=== PATIENT | female | born 1950 | race Caucasian/White ===

== ENCOUNTER 2023-03-20 08:01 | Observation (INO) ==
--- NOTE | 2023-03-08 12:29 | PAT Medication Instructions ---
Medication Instructions Date of Service March 08, 2023 Home Medications Medication Instructions Recorded Randall Dorado #1 ea 03/08/23 atorvastatin 10 mg tablet 10 mg PO QAM doxycycline hyclate 50 mg capsule 50 mg PO QAM metoprolol succinate 25 mg tablet,extended release 24 hr 25 mg PO QPM rivaroxaban 20 mg tablet 20 mg PO QPM acetaminophen 500 mg tablet 1,000 mg PO TID PRN Pain ASK your prescriber and surgeon rivaroxaban 20 mg tablet 20 mg PO QPM (in order to get spinal anesthesia DOS- must be off Xarelto/rivaroxaban for at least 72 hours) Take morning of surgery With a small sip of water, OTHERWISE NOTHING TO EAT OR DRINK AFTER MIDNIGHT: atorvastatin 10 mg tablet 10 mg PO QAM doxycycline hyclate 50 mg capsule 50 mg PO QAM acetaminophen 500 mg tablet 1,000 mg PO TID PRN Pain (if needed) Take evening before surgery metoprolol succinate 25 mg tablet,extended release 24 hr 25 mg PO QPM acetaminophen 500 mg tablet 1,000 mg PO TID PRN Pain (if needed) Other Notes If you have any questions please call us at [phone] or [phone] or [phone] or [phone]
--- NOTE | 2023-03-09 11:06 | Anesthesiology Consultation ---
Date of Service March 09, 2023 Assessment & Plan (1) Encounter for pre-operative examination: - COVID screening: Per assessment on 03/09: No known COVID-19 positive contacts or current COVID-19 related symptoms. Travel screen negative. Patient vaccinated. At surgeon discretion if preop Covid testing being done. - Outpatient joint assessment: Pt currently scheduled for inpatient pathway. If surgeon requests review for outpatient joint pathway, patient is not recommended candidate for outpatient joint program from anesthesia standpoint. - Xarelto instructions: patient made aware that in order for spinal anesthesia, Xarelto needs to be held 72 hours prior to surgery. Patient voiced understanding/will check if okay with prescriber. - A. fib * Cardiology visit (02/28/23): "She did not tolerate the metoprolol because of related fatigue. Since starting Xarelto, she is not been able to take nonsteroidal anti-inflammatory drugs for management of her severe osteoarthritis of the knees. With highly symptomatic episodes of atrial fibrillation, she was referred to discuss further management, in particular catheter ablation.Currently she is having monthly events that will last for 2-3 days. There are no obvious triggers. With the atrial fibrillation she is fatigued with no energy. She is exhausted and simply worn out. She notes t hat her heart is racing.. Long-term anticoagulation was discussed. Given her CHADS-VASc score of 2, anticoagulation is indicated. However the burden of atrial fibrillation is low, the onset of the tachycardia is obvious either with symptoms or as documented by her watch, and her risk of a stroke is relatively low. If ablation is successful, it may be reasonable to discontinue anticoagulation in the future. This would allow her to use nonsteroidal agents for management of her degenerative joint disease.. Arrange for pulmonary vein isolation procedure." * Patient scheduled for PVI Cryoablation 04/2023. Cardiology was made aware of upcoming Right TKA 03/2023. Per cardiology response 03/08/23, "As long as they restart the rivaroxaban on March 21, we will still be able to proceed with the procedure [ablation]. I would like to have a minimum of 3 weeks of uninterrupted anticoagulation before the procedure. This will be cutting a close but will probably be okay." - Cardiology aware of upcoming orthopedic surgery (03/2023) prior to PVI cryoablation (04/2023). Case/cardiac history reviewed with Dr. Frank. Patient acceptable risk for surgery pending evaluation DOS. Chart Review Chart Review: Patient seen in Pre Admission Testing Teaching & Discussion Pre-Anesthesia Teaching/Discussion Notes: Instructed NPO after midnight before surgery,except medications with 15 cc of water. Medication instructions provided according to the PAT guidelines. History Surgery Operation Date: 03/20/23 10:40 Proposed Procedures p Right Total Knee Arthroplasty - Bakari Vasquez MD Height/Weight Height: 5 ft 7 in Weight: 70.3 kg Allergies Allergy/AdvReac Type Severity Reaction Status Date / Time erythromycin base Allergy Severe severe Verified 03/08/23 11:18 stomach pain thimerosal Allergy Severe severe Verified 03/08/23 11:18 swelling latex Allergy Intermediate redness/skin Verified 03/08/23 11:19 irritation bee stings Allergy Severe Anaphylaxis Uncoded 03/08/23 11:18 Medications Home Medications Medication Instructions Recorded Confirmed Last Taken atorvastatin 10 mg tablet 10 mg PO QAM 02/12/23 03/08/23 Unknown doxycycline hyclate 50 mg capsule 50 mg PO QAM 02/12/23 03/08/23 Unknown metoprolol succinate 25 mg 25 mg PO QPM 02/12/23 03/08/23 Unknown tablet,extended release 24 hr rivaroxaban 20 mg tablet 20 mg PO QPM 02/12/23 03/08/23 Unknown Wheeled Walker #1 ea 03/08/23 03/08/23 Unknown acetaminophen 500 mg tablet 1,000 mg PO TID PRN Pain 03/08/23 03/08/23 Unknown Past Medical History Medical History A-fib Taking Metoprolol/Xarelto Follows with Dr. Pennington Basal cell carcinoma of face Hyperlipidemia Mitral valve prolapse Echo 06/05/22- Borderline anterior mitral leaflet prolapse, Mild to moderate MR Osteoarthritis of right knee Rosacea Reason for doxycycline Exercise / Class Metabolic Activity II 4-5 Yardwork/Stairs/Walk up hill (one FS (no CP, no SOB)) Past Family History Family History Other No family history of adverse response to anesthesia Past Surgical History Surgical History History of appendectomy repair of intussusception + removal of appendix (age 3) History of arthroscopy of left knee History of arthroscopy of right knee History of colonoscopy History of dilatation and curettage History of foot surgery left for plantar fasciitis History of hammertoe correction left History of major abdominal surgery repair of intussusception + removal of appendix (age 3) History of Mohs micrographic surgery for skin cancer x2 History of partial hysterectomy History of tonsillectomy and adenoidectomy History of varicose vein ligation History of wisdom tooth extraction Past Anesthesia History No Hx of Anesthesia Complications and No Family Hx of Anesthesia Complications History of PONV No Hx of PONV and Hx of Motion Sickness Social History Smoking Status: Never smoker Do You Dip or Chew Tobacco: No Hx Alcohol Use: Yes Alcohol type: wine alcohol intake frequency: a few times a month Hx Substance Use: No substance use type: does not use Review of Systems Occasional palpitations. Patient denies chest pain, shortness of breath, dyspnea on exertion, fever, chills, cough, wheezing. Physical Exam Vital Signs VITALS BP 134/81 P 70 TEMP 98.1 SP02 96%RA RESP 16 PHYSICAL Full cervical extension range of motion. Full TMJ range of motion. TMD 3 finger breaths Mallampati Score Dentition: intact, + crowns Lungs: clear throughout to auscultation Cardiac: regular rate and rhythm, no murmurs noted Spine: normal Carotid arteries: negative bruit Extremities: no LE edema Lab Results Anesthesia Preop Results Results Anesthesia Widget: WBC 6.72 K/ul (4.8-10.8) 03/09/23 Hgb 13.1 g/dl (12.0-16.0) 03/09/23 Hct 37.9 % (37.0-47.0) 03/09/23 Plt 294 K/uL (130-400) 03/09/23 Na 136 mmol/L (136-145) 03/09/23 K 4.0 mmol/L (3.5-5.1) 03/09/23 Cl 102 mmol/L (98-107) 03/09/23 CO2 25 mmol/L (21-32) 03/09/23 BUN 15 mg/dl (6-23) 03/09/23 Creat 0.83 mg/dl (0.6-1.2) 03/09/23 Glucose Level 82 mg/dl (70-99(Fasting)) 03/09/23 PT 12.3 Seconds (9.0-12.0) H 03/09/23 PTT 33.1 Seconds (21.0-31.0) H 03/09/23 INR 1.1 (0.9-1.1) 03/09/23 Blood Type A Positive 03/09/23 Antibody Screen NEGATIVE 03/09/23 Testing Laboratory Results Mildly elevated coags- patient taking rivaroxaban* Electrocardiogram Date: 02/28/23 NSR at 61bpm. Rightward axis. Chest X-Ray Date: 03/09/23 FINDINGS: PA and lateral chest radiographs are obtained. No prior studies are available for comparison at the time of dictation. The cardiomediastinal silhouette is unremarkable. The lungs and pleural spaces are clear. There is no pneumothorax. The skeletal structures are osteopenic. The bony thorax appears intact. IMPRESSION: No active disease in the chest. Echocardiogram Date: 06/05/22 LVEF 60-64%. Mild AR. Borderline anterior mitral leaflet prolapse. Mild to moderate MR. Mild TR. LV wall motion is normal. No LV mural thrombus. COVID-19 Risk Screen Screening Information COVID-19 Screen Date: 03/09/23 Exposure 21 Days Family/Household +COVID Last 21 Days: No Exposure 10 Days Any COVID Exposure Last 10 Days: No Symptoms Last 10 Days Experienced COVID Sx Last 10 Days: No + COVID 0-90 Days COVID + in Last 0-90 Days: No
[~2023-03-20 08:01] MED LIST: ACETAMINOPHEN 500 MG TAB PO SCH; BUPIVACAINE 0.5 % 5 MG/1 ML PF 10ML VIAL ONE; BUPIVACAINE LIPOSOME/PF 266 MG, BUPIVACAINE/EPINEPHRINE 50 ML, SODIUM CHLORIDE 0.9% PF ... INFIL SCH; CeleBREX 200 MG CAP PO SCH; FAMOTIDINE 20 MG TAB PO SCH; LR 500ML BOLUS, THEN 15ML/HR IV SCH; LR 60ML/HR IV SCH; METOCLOPRAMIDE HCL 10 MG TABLET PO SCH; ROPIVACAINE 0.5% 5 MG/ML 30 ML VIAL ONE; TRANEXAMIC ACID 1,000 MG **IV Intra-op IV SCH; ceFAZolin 2000MG 2,000 MG/15 ML SYR IV SCH; dexAMETHasone 4 MG TAB PO SCH
[2023-03-20] MEDS ORDERED: MIDAZOLAM HCL 1 MG/ML 2ML VIAL ONE (08:08)
[2023-03-20] MEDS ORDERED: LIDOCAINE 2% 2 ML VIAL/AMP(20MG/ML) INFIL ONE (08:08)
[2023-03-20] MEDS ORDERED: PROPOFOL IV EMULSION 10 MG/ML 20 ML VIAL IV ONE (08:08)
[2023-03-20] MEDS ORDERED: ONDANSETRON INJ 2 MG/ML 2 ML VIAL ONE (08:08)
--- NOTE | 2023-03-20 08:36 | History & Physical Bridge Note ---
Date of Service March 20, 2023 History & Physical Bridge Note I have examined the patient, reviewed the History & Physical and in the interval since the performance of the History & Physical I have noted the following changes of clinical significance: no changes noted
[2023-03-20] MEDS ORDERED: ePHEDrine sulfate 50 MG/ML AMP IV PRN (09:27)
[2023-03-20] MEDS ORDERED: ATROPINE SULFATE 0.1 MG/ML 10ML SYR IV PRN (09:27)
[2023-03-20] MEDS ORDERED: fentaNYL citrate PF 100 MCG/2 ML VIAL IV PRN (09:27)
[2023-03-20] MEDS ORDERED: ONDANSETRON INJ 2 MG/ML 2 ML VIAL IV PRN ×2 (09:27→14:07)
[2023-03-20] MEDS ORDERED: BUPIVACAINE/EPINEPHRINE 0.25% 1:200,000 30 ML VIAL ONE (10:49)
[2023-03-20] MEDS ORDERED: SODIUM CHLORIDE 0.9% PF 50 ML VIAL ONE (10:49)
[2023-03-20] MEDS ORDERED: BUPIVACAINE LIPOSOME 1.3% 266 MG/20 ML VIAL ONE (10:50)
--- NOTE | 2023-03-20 12:42 | Operative Report ---
PG Post Operative Report Pre & Post Diagnosis Operation Date: 03/20/23 10:20 Pre-Op Diagnosis: Osteoarthritis of right knee Post-Op Diagnosis: Osteoarthritis of right knee I identified the patient and participated in the time-out.: Yes Procedure Operation Date: 03/20/23 10:20 Actual Procedures p Right Total Knee Arthroplasty(Right) - Bakari Vasquez MD Surgeon Bakari Vasquez MD [employer] Machine Setter Rocky Tan PA-C Estimated Blood Loss 50 Findings Consistent with Post-Op Diagnosis Operative findings were advanced right knee DJD. She had for extensive grade 4 [id number] disease of the lateral compartment. Severe valgus deformity to her knee. She has some intercondylar notch osteophytes. The medial and patellofemoral compartments were pretty well-preserved. She with diffuse osteopenia. Specimens Right knee sent for pathology Anesthesia Type Spinal MAC Complications none Disposition Accompanied Patient To Recovery: No Indications Patient 72-year-old female said a long history of knee pain discomfort. Over the past year her symptoms in her right knee got particularly worse. The x-rays show advanced compartment arthritis but she failed all conservative measures. She elected proceed with surgical management. Description of Procedure Operative implants consist of: 1 Biomet Vanguard size 65 right posterior femoral component. 2. Biomet size 71 tibial tray. 3. 10 mm post stabilized polyethylene insert. 4. 31 x 8 all poly patella. The patient was taken the operating, identified, and placed on the operating table supine position architectures were properly padded. IV antibiotics tried by anesthesia team. A spinal anesthetic and abductor canal block had provided in the holding area. Moore cath was placed in sterile fashion. Right thigh high tourniquet was then placed in the right lower extremities and prepped draped in usual sterile fashion. The right leg was elevated and exsanguinated with use of an Esmarch and the tourniquet was placed at 300 mmHg. An anterior process of the right knee was then performed to longitudinal incision centered over the patella. Sharp dissection carried through subcutaneous tissue down the extensor mechanism. A medial prepped arthrotomy incision was made. Some subperiosteal dissection was carried out medially. The fat pad was resected from Neath patella tendon. Lateral patellofemoral ligament was released. Patella subluxated laterally and the knee was flexed with the osteophytes taken on distal femur. The ACL and PCL were then released from distal femur the tibia subluxated anteriorly. The external tibial alignment jig was then placed in the interface the tibia and adjusted 12 mm medially. Proximal tibial cut was made remove about 3 to 4 mm of bone from the medial side. The tibia was sized to a size 71. Try to maximize coverage due to osteopenia. Attention drawn the femur. The distal femur examined the sharp drop with intramedullary canal was suction. A right 5 degree valgus cutting guide was placed. This femoral cutting block was pinned in place. This femoral cut was made to take an additional 3 mm bone off distal femur. Femur was then sized to a size 65. The AP cutting block was pinned parallel to the epicondylar axis which was 5 degrees of external rotation. The anterior cut, anterior chamfer, posterior cut, posterior chamfer cuts were made. The box cutting guide was placed in just slight lateral and the box cut was made. The knee was flexed. The remnants of the medial lateral menisci were excised with the osteophytes taken off the posterior aspect the femur. A trial femoral component was placed. Tibial tray was pinned in maximum external rotation and the drill and stem punch were used to create the defect in proximal tibia for the tibial tray. The knee was then trialed and the 10 mm insert fit most appropriately. Attention drawn the patella. The patella was cleaned of all soft tissues. Patella thickness measured 20 mm in thickness was cut down to 12. Was sized to a size 31 patella. The lug holes were drilled for 31 patella. The lateral osteophytes removed. Patella button was placed. Knee was taken through range of motion patella tracked nicely with no thumbs test. Attention drawn to place the permanent components. Truck cones removed. Bone plug was placed in the distal femur limit blood loss. Double batch Palacos G cement was mixed. Biomet Vanguard size 65 right posterior femoral component, size 71 tibial tray, a 10 mm posterior stabilized polyethylene insert, and a 31 x 8 all Paller patella was then cemented in place. The knee was brought out into full extension till cement hardened. Final cement check was then performed. Pericapsular tissues were injected with total 100 cc of combination of 20 cc of Exparel, 30 cc normal saline, 50 cc of quarter percent Marcaine with epinephrine. The patient did receive 1 g tranexamic acid. The tourniquet was then let down for final tourniquet time of 54 minutes. Hemostasis reduced electrocautery. Extensor mechanism closed with combination 1 PDS suture #1 Vicryl suture in a [id number] fashion. The extensor mechanism checked found intact and subcutaneous tissue then closed with 2 Dexon suture in a buried interrupted fashion skin was closed skin jo. Leg was then cleaned and dried and a sterile dressing was Xeroform, 4 fours, sterile cast padding, Emile bandage were applied. Patient then transferred to the recovery room in stable condition. Patient tolerated procedure well and there were no complications. Rocky Tan, my physician academic support assistant, was present for the entire procedure. His assistance was essential and required for appropriate patient positioning, prepping and draping, surgical exposure, performing the technical details of the operation, placement the implants, closure of the wound, and placement of the sterile bandage. I attest to the content of the Intraoperative Record and any orders documented therein. Any exceptions are noted below.
--- NOTE | 2023-03-20 13:04 | XRay Report ---
XR knee RT 1 or 2V routine HISTORY: 72 years-old Female Surgical Post Op right knee arthroplasty COMPARISON: 02/12/2023 TECHNIQUE: 2 views of the right knee FINDINGS: Total joint arthroplasty with patellar resurfacing and anterior midline skin jo. Expected postop erative soft tissue swelling with deep tissue air. No acute fracture or unexpected opaque foreign bod y identified. IMPRESSION: Total joint arthroplasty with expected postoperative changes. ACT 112: Negative or not required by law. The above report was generated using voice recognition software. It may contain grammatical, syntax o r spelling errors. Electronically signed by: Dilan Perez M.D. 03/20/2023 1:03 PM
--- NOTE | 2023-03-20 13:45 | Anesthesiology Progress Note ---
Date of Service March 20, 2023 Anesthesia Post Procedure Vital Signs Vital Signs: Temp Pulse Resp BP Pulse Ox O2 Del Method O2 Flow Rate 03/20/23 13:35 81 18 123/59 L 98 Room Air 03/20/23 13:25 70 12 111/58 L 99 Room Air 03/20/23 13:15 72 12 105/49 L 98 Room Air 03/20/23 13:05 71 14 102/50 L 97 Room Air 03/20/23 12:55 75 16 101/48 L 100 Room Air 03/20/23 12:45 75 13 99/47 L 100 Oxymask 5 03/20/23 12:35 97.3 F L 99 H 12 104/45 L 100 Oxymask 5 03/20/23 08:41 97.9 F 75 18 165/73 H 98 Room Air Pain Intensity Right Knee: Pain Intensity: 5 Transfer of Care Handoff Completed per policy Notes Mental Status: alert / awake / arousable and participated in evaluation Patient Amnestic to Procedure: Yes Nausea / Vomiting: adequately controlled Pain: adequately controlled Airway Patency, RR, SpO2: stable & adequate BP & HR: stable & adequate Hydration State: stable & adequate Neuraxial Anesthesia: was administered and sensory block is resolving Anesthetic Complications: no major complications apparent and Pt Satisfied with anesthetic care
[2023-03-20] MEDS ORDERED: HYDROmorphone INJ 0.5 MG/0.5 ML SYR IV PRN (14:07)
[2023-03-20] MEDS ORDERED: SODIUM CHLORIDE 0.9% 1000ML 1,000 ML IV SCH (14:07)
[2023-03-20] MEDS ORDERED: MAGNESIUM HYDROXIDE SUSP 30 ML UDC PO PRN (14:07)
[2023-03-20] MEDS ORDERED: ALUMINUM/MAGNESIUM SUSP 30 ML UDC PO PRN (14:07)
[2023-03-20] MEDS ORDERED: METOCLOPRAMIDE HCL INJ 5 MG/ML 2 ML VIAL IV PRN (14:07)
[2023-03-20] MEDS ORDERED: NALOXONE HCL 0.4 MG/1 ML VIAL/CARP IV PRN (14:07)
[2023-03-20] MEDS ORDERED: bisacodyL 10 MG SUPP PR PRN (14:07)
[2023-03-20] MEDS: ACETAMINOPHEN 500 MG TAB PO SCH ×2 (14:42→21:06)
[2023-03-20] MEDS: KETOROLAC TROMETHAMINE 15 MG/ML VIAL IV SCH ×2 (14:43→19:47)
[2023-03-20] MEDS: ASCORBIC ACID 500 MG TAB PO SCH (17:32)
[2023-03-20] MEDS: ceFAZolin 1000MG 1,000 MG/7.5 ML SYR IV SCH (18:20)
[2023-03-20] MEDS ORDERED: TRANEXAMIC ACID / 0.7% NACL 1,000 MG/100 ML BAG IV SCH (18:45)
[2023-03-20] MEDS: DOCUSATE SODIUM 100 MG CAP PO SCH (19:47)
[2023-03-20] MEDS: SENNA 8.6 MG TAB PO SCH (19:48)
[2023-03-20] MEDS: oxyCODONE HCL IR 5 MG TAB (IMMEDIATE RELEASE) PO PRN (19:49)
[2023-03-20] MEDS ORDERED: METOPROLOL SUCC 25MG EXT REL TAB PO SCH (21:00)
[2023-03-20] MEDS ORDERED: SENNA 8.6 MG TAB PO SCH (21:00)
[2023-03-21] MEDS: KETOROLAC TROMETHAMINE 15 MG/ML VIAL IV SCH ×2 (01:51→09:21)
[2023-03-21] MEDS: ceFAZolin 1000MG 1,000 MG/7.5 ML SYR IV SCH (01:54)
[2023-03-21] MEDS: oxyCODONE HCL IR 5 MG TAB (IMMEDIATE RELEASE) PO PRN ×2 (05:08→11:31)
[2023-03-21] MEDS: ACETAMINOPHEN 500 MG TAB PO SCH (05:09)
[2023-03-21] MEDS ORDERED: dexAMETHasone 10 MG in SYRINGE 0 ML IV SCH (08:00)
[2023-03-21 08:22] LABS: Hematocrit (blood only) 30.5 % (37.0-47.0); Hemoglobin 10.5 g/dl (12.0-16.0); Mean Corpuscular Hemoglobin 33.2 pg (25.0-34.0); Mean Corpuscular Hgb Conc 34.4 g/dL (32.0-36.0); Mean Corpuscular Volume 96.5 fL (80.0-100.0); Mean Platelet Volume 9.3 fL (9.4-12.4); Platelet Count 372 K/uL (130-400); RDW Coefficient of Variation 13.1 % (11.5-14.5); RDW Standard Deviation 46.7 fL (36.4-46.3); Red Blood Count 3.16 M/uL (4.20-5.40); White Blood Count 17.28 K/ul (4.8-10.8)
[2023-03-21 08:35] LABS: BUN Creatinine Ratio 16.2 (10-20); Calcium 9.3 mg/dl (8.6-10.3); Creatinine Clr Calc Pharmacy 65.8 ml/min; Est GFR (African American) 93.2 ml/min; Est GFR (Non-African American) 80.4 ml/min; Potassium 4.2 mmol/L (3.5-5.1)
[2023-03-21] MEDS ORDERED: ATORVASTATIN 10 MG TAB PO SCH (09:00)
[2023-03-21] MEDS ORDERED: MULTIVITAMIN TAB PO SCH (09:00)
[2023-03-21] MEDS: DOCUSATE SODIUM 100 MG CAP PO SCH (09:17)
[2023-03-21] MEDS: ASCORBIC ACID 500 MG TAB PO SCH (09:18)
[2023-03-21] MEDS: SENNA 8.6 MG TAB PO SCH (09:20)
--- NOTE | 2023-03-21 11:47 | Progress Notes ---
DATE OF SERVICE: 03/21/2023. SUBJECTIVE: A 72-year-old female postoperative day 1 from right knee replacement. She is doing maral rkably well. Pain has been controlled. No chest pain or shortness of breath. Not feeling dizzy or lightheaded. She has been walking the halls without any assistance devices. OBJECTIVE: VITAL SIGNS: Temperature 36.4. Vital signs are stable. GENERAL: Shows a pleasant middle-aged female. She is sitting up in bed and talking to her a nd looks comfortable. LUNGS: Clear to auscultation. HEART: Regular rate and rhythm. ABDOMEN: Soft, nontender, nondistended. EXTREMITIES: Grossly neurovascularly intact except as follows. Examination of the right knee reveals the dressing to be clean, dry and intact. She can do a good st raight leg raise. She can dorsiflex and plantarflex her foot appropriately. She is neurologically i ntact. LABORATORY DATA: Hemoglobin 10.5. Hematocrit 30.5. Electrolytes are stable. ASSESSMENT: A 72-year-old female postoperative day 1 from a right knee replacement, doing well. Alysia n is controlled. She has done remarkably well in therapy. She is hoping to go home and wants to do therapy on her own. PLAN: I discussed these issues and answered all of her questions today. I would recommend she have some formal therapy, but she feel she can do on her own. We will see how things go for 2 weeks. I c autioned about going too fast or being too active for swelling issues and just healing. We will plan on DVT prophylaxis includes thigh-high TEDs, SCDs and she is back on her Xarelto starting today at a prophylactic dose and then discharge on therapeutic dose. She has pain medicines at home and she wi ll follow up in the office in 2 weeks. Job ID: [id number]
[2023-03-21] MEDS ORDERED: RIVAROXABAN 10 MG TABLET PO SCH (13:00)
--- NOTE | 2023-03-27 10:08 | Discharge Summary ---
Date of Service March 27, 2023 Discharge Data Procedures Performed Operation Date: 03/20/23 10:20 Actual Procedures p Right Total Knee Arthroplasty(Right) - Bakari Vasquez MD Hospital Course (1) Status post total right knee replacement: This is a 72 year old patient admitted on 03/20/23 and underwent total knee arthroplasty. She tolerated the procedure well and there were no complications. Transferred to the PACU post op and later to the orthopedic floor for further care. She was given ancef for antibiotic prophylaxis. She was also given PABLO stockings, SCDs, and xarelto for DVT prophylaxis. Hemoglobin, hematocrit, and vital signs were monitored during her hospital stay and remained stable. Did not require any blood transfusions. There were no complications during her hospital stay. By post op day #1 the patient was tolerating a regular diet, pain was reasonably controlled with oral pain medicine, and she was participating in physical therapy. On post op day #1 the patient was discharged home. She was given printed discharge instructions including prescriptions for extra strength tylenol, xarelto, zofran, senokot, and oxycodone. Continue physical therapy, weight bearing as tolerated. Continue PABLO stockings. Follow up approximately 2 weeks post op or sooner if there are problems or concerns. Coding Level of Care Code None Diagnoses Status post total right knee replacement Z96.651
== END 2023-03-21 13:53 | disposition home or self-care (01) ==
LOC: ASU 08:01 → 3N 08:01
DX: Z91.030 Bee allergy status; Z88.1 Allergy status to other antibiotic agents; M17.11 Unilateral primary osteoarthritis, right knee; Z79.899 Other long term (current) drug therapy; Z91.040 Latex allergy status